=== PATIENT | female | born 1990 | race Caucasian/White ===

== ENCOUNTER → 2017-06-17 | Outpatient (CLI) | payer OTHER | LOC: LAB SHORT 13:50 | DX: L02.92 Furuncle, unspecified (principal) | CPT/HCPCS: 87070; 87077; 87147; 87186; 87205 ==

== ENCOUNTER → 2018-01-10 | Outpatient (CLI) | payer OTHER | END | disposition home or self-care (01) | LOC: LAB EV 09:24 → LAB SHORT 09:24 | DX: L05.01 Pilonidal cyst with abscess (principal) | CPT/HCPCS: 87070; 87075; 87205 ==

== ENCOUNTER → 2018-01-17 | Outpatient (CLI) | payer OTHER | END | disposition home or self-care (01) | LOC: LAB 17:43 → LAB SHORT 17:43 | DX: A49.02 Methicillin resistant Staphylococcus aureus infection, unspecified site (principal); Z86.14 Personal history of Methicillin resistant Staphylococcus aureus infection | CPT/HCPCS: 87081 ==

== ENCOUNTER → 2018-02-18 | Outpatient (CLI) | payer OTHER | END | disposition home or self-care (01) | LOC: LAB 09:44 → LAB SHORT 09:44 | DX: Z22.322 Carrier or suspected carrier of Methicillin resistant Staphylococcus aureus (principal) | CPT/HCPCS: 87070; 87081 ==

== ENCOUNTER → 2018-06-10 | Outpatient (CLI) | payer OTHER | LOC: LAB SHORT 18:23 → LAB EV 18:23 | DX: L72.8 Other follicular cysts of the skin and subcutaneous tissue (principal) | CPT/HCPCS: 87070; 87075; 87205 ==

== ENCOUNTER 2018-08-13 17:35 | Inpatient (IN) | payer OTHER ==
[~2018-08-13] VITALS: Ht 170.2 cm; Wt 106.0 kg
[2018-08-13] MEDS ORDERED: BUSP5 PO (18:33)
[2018-08-13 18:34] LABS: BASOPHILS ABSOLUTE AUTO 0.01 K/mm3 (0.00-0.23); BASOPHILS PERCENT AUTO 0 % (0-2); EOSINOPHILS ABSOLUTE AUTO 0.04 K/mm3 (0.00-0.68); EOSINOPHILS PERCENT AUTO 0 % (0-6); Hematocrit 33.6 % (33.0-51.0); Hemoglobin 11.2 g/dL (11.5-16.0); IMMATURE GRAN ABSOLUTE AUTO 0.04 K/mm3 (0.00-0.10); IMMATURE GRAN PERCENT AUTO 0 % (0-1); LYMPHOCYTES ABSOLUTE AUTO 1.93 K/mm3 (0.84-5.20); LYMPHOCYTES PERCENT AUTO 18 % (21-46); MONOCYTES ABSOLUTE AUTO 0.66 K/mm3 (0.16-1.47); MONOCYTES PERCENT AUTO 6 % (4-13); Mean Corpuscular HGB 30.7 pg (26.0-34.0); Mean Corpuscular HGB Conc 33.3 g/dL (31.5-36.5); Mean Corpuscular Volume 92 fL (80-100); Mean Platelet Volume 10.1 fL (9.1-12.4); NEUTROPHILS ABSOLUTE AUTO 8.03 K/mm3 (1.96-9.15); NEUTROPHILS PERCENT AUTO 75 % (41-73); Platelet Count 254 K/mm3 (150-400); RDW Coefficient Variation 12.6 % (11.7-14.2); RDW Standard Deviation 42.3 fL (35.1-46.3); Red Blood Cell Count 3.65 M/mm3 (3.80-5.20); White Blood Cell Count 10.71 K/mm3 (4.00-11.30)
[2018-08-13] MEDS ORDERED: Prilosec Otc20 MG PO (18:36)
[2018-08-13] MEDS ORDERED: Verotin-Gr Cap1 EACH PO (18:36)
[2018-08-13] MEDS ORDERED: CEPH500 (18:37)
[2018-08-13] MEDS ORDERED: LORA1SY PO (18:38)
--- NOTE | 2018-08-14 07:05 | NUR ---
ASSUMED PT CARE. PT RESTING FEELS SLEEPY, ENCOURGED TO REST UNTIL [facility] CNM ARRIVES THIS AM. PT WANTS MINIMAL INTERVENTIONS, BUT UNDERSTANDS NEED IF NECESSARY. CHART REVIEWED, REPORT FROM NOC THAT PT HAS A BACK LESION NEAR TOP OF UPPER COCCYX. HAS BEEN THERE SINCE 03-14-18, WAS ON KEFLEX, THEN DRAINED AGAIN 04/22/18 AT THE URGENT CARE AND WAS GIVEN AUGMENTIN. ON 06/19/18 CYST DRAINED AGAIN AND GIVEN AMOXICILLIN. PT REPORTS IT WAS DRAINED LAST WEEK AND SHE WAS PUT ON KEFLEX. IT HAS NOT BEEN CULTURED AND THE PT WAS CREARED FROM INFECTION CONTROL YESTERDAY FROM PREVIOUS BREASION LESION AND NARES. INSERTER PROMOTIONAL ITEMESHA GARCIA UPDATED, WILL DISCUSS WITH PROVIDER ON ARRIVAL TODAY.
--- NOTE | 2018-08-14 10:51 | NUR ---
Talked with CNM this am about coccyx culture. CNM reports [place] was dealing with it. Pt reports she will see a surgeon after is over to get the sac removed, as it wasn't removed 4 years ago when initally lanced. It is not red, but tender. CNM had given rx 8 days ago as it had puss, red with weaping dicsharge. Per pt it has been cultured, but there are no reports noted in [facility] system. There is one in Jun 2018 from a thigh culture. RN encourged pt to call surgeon soon after delivery.
--- NOTE | 2018-08-14 19:07 | NUR ---
REPORT TO MAURO BALBUENA/ESHA CLARK.
[2018-08-15 05:51] LABS: BASOPHILS ABSOLUTE AUTO 0.02 K/mm3 (0.00-0.23); BASOPHILS PERCENT AUTO 0 % (0-2); EOSINOPHILS ABSOLUTE AUTO 0.03 K/mm3 (0.00-0.68); EOSINOPHILS PERCENT AUTO 0 % (0-6); Hematocrit 29.9 % (33.0-51.0); Hemoglobin 9.7 g/dL (11.5-16.0); IMMATURE GRAN ABSOLUTE AUTO 0.06 K/mm3 (0.00-0.10); IMMATURE GRAN PERCENT AUTO 1 % (0-1); LYMPHOCYTES ABSOLUTE AUTO 1.78 K/mm3 (0.84-5.20); LYMPHOCYTES PERCENT AUTO 14 % (21-46); MONOCYTES ABSOLUTE AUTO 0.84 K/mm3 (0.16-1.47); MONOCYTES PERCENT AUTO 7 % (4-13); Mean Corpuscular HGB 30.6 pg (26.0-34.0); Mean Corpuscular HGB Conc 32.4 g/dL (31.5-36.5); Mean Corpuscular Volume 94 fL (80-100); Mean Platelet Volume 10.1 fL (9.1-12.4); NEUTROPHILS ABSOLUTE AUTO 9.78 K/mm3 (1.96-9.15); NEUTROPHILS PERCENT AUTO 78 % (41-73); Platelet Count 213 K/mm3 (150-400); RDW Coefficient Variation 12.5 % (11.7-14.2); RDW Standard Deviation 43.3 fL (35.1-46.3); Red Blood Cell Count 3.17 M/mm3 (3.80-5.20); White Blood Cell Count 12.51 K/mm3 (4.00-11.30)
--- NOTE | 2018-08-15 13:09 | NUR ---
ICE DIAPER TO PERINEUM AND BOTTOM. PT INSTRUCTED TO LAY FLAT WITH A PILLOW BETWEEN HER LEGS TO ALLEVIATE PRESSURE.
[2018-08-15] MEDS ORDERED: IBUP800 PO (18:15)
[2018-08-15] MEDS ORDERED: Percocet 5-3251 EACH PO (18:16)
--- NOTE | 2018-08-15 20:52 | NUR ---
DISCUSSED DISCHARGE INSTRUCTIONS WITH PT AND S.O., BOTH VERBALIZED UNDERSTANDING AND DENIED ANY FURTHER QUESTIONS OR CONCERNS. PT OBTAINED PRESCRIPTION PAIN MEDICATIONS PRIOR TO THIS SHIFT AND HAS THEM AVAILABLE IN THE ROOM.
== END 2018-08-15 20:45 | disposition home or self-care (01) | DRG 807 ==
LOC: OBS 17:35 → BC 17:36 → OBS 17:53 → BC 17:59
PROVIDERS: ADMIT Nurse Practitioner Obstetrics & Gynecology
PROC: 10E0XZZ Delivery of Products of Conception, External Approach (ICD-10-PCS; principal; 2018-08-14)
PROC: 0HQ9XZZ Repair Perineum Skin, External Approach (ICD-10-PCS; 2018-08-14)
PROC: 10H07YZ Insertion of Other Device into Products of Conception, Via Natural or Artificial Opening (ICD-10-PCS; 2018-08-14)
PROC: 3E0R3BZ Introduction of Anesthetic Agent into Spinal Canal, Percutaneous Approach (ICD-10-PCS; 2018-08-14)
DX: O42.02 Full-term premature rupture of membranes, onset of labor within 24 hours of rupture (principal); Z37.0 Single live birth; O63.1 Prolonged second stage (of labor); O70.0 First degree perineal laceration during delivery; Z3A.38 38 weeks gestation of pregnancy; Z91.040 Latex allergy status; F41.9 Anxiety disorder, unspecified; O99.344 Other mental disorders complicating childbirth
CPT/HCPCS: 36415; 51702; 85025; 86900; 86901; J0290; J0690; J1200; J1885; J2210; J2590; J3010; J7120

== ENCOUNTER 2018-10-25 05:56 | Day surgery (SDC) | payer OTHER, SELFPAY ==
[~2018-10-25] VITALS: Ht 170.2 cm; Wt 98.1 kg
[~2018-10-25 05:56] MED LIST: BUSP5 PO; CEPH500; IBUP800 PO; LEXAPRO PO; LORA1SY PO; LORATADINE10 MG PO; Percocet 5-3251 EACH PO; Prilosec Otc20 MG PO; SERT25 PO; Verotin-Gr Cap1 EACH PO; Zantac150 MG PO
--- NOTE | 2018-10-25 06:24 | NUR ---
History, Chart, Medications and Allergies reviewed before start of procedure. Patient confirms NPO status and agrees with scheduled surgery. Patient States Post-Procedure ride home has been arranged with her .
--- NOTE | 2018-10-25 10:00 | NUR ---
recieved patient recieved report vss. dressing cdi
--- NOTE | 2018-10-25 10:56 | NUR ---
DISCHARGED WITH ALL BELONGINGS AND DISCHARGE INSTRUCTIONS WITH DRAIN CARE INSTRUCTIONS. Discharge instructions reviewed with patient. Patient verbalizes understanding. Copy given to patient to take home. Patient States Post-Procedure ride home has been arranged. Discharged via wheelchair to private car for ride home.
== END 2018-10-25 22:56 | disposition home or self-care (01) ==
LOC: ORSCMMR 05:56 → ORD 07:30 → ORSCMMR 22:56
PROVIDERS: Surgery
PROC: 0HX8XZZ Transfer Buttock Skin, External Approach (ICD-10-PCS; principal; 2018-10-25 07:30)
PROC: 0JB90ZZ Excision of Buttock Subcutaneous Tissue and Fascia, Open Approach (ICD-10-PCS; principal; 2018-10-25 07:30)
DX: L05.01 Pilonidal cyst with abscess (principal); Z79.899 Other long term (current) drug therapy
CPT/HCPCS: 88305; A9270-GY; J0295; J1100; J1885; J2250; J2405; J2704; J2710; J3010; J7120

== ENCOUNTER → 2018-12-18 | Outpatient (CLI) | payer OTHER ==
[~2018-12-18] MED LIST changes: +ACET500 PO
== END ==
LOC: LAB 16:52 → LAB SHORT 16:52
DX: L81.4 Other melanin hyperpigmentation (principal); L73.2 Hidradenitis suppurativa; L08.9 Local infection of the skin and subcutaneous tissue, unspecified; L05.91 Pilonidal cyst without abscess; L72.8 Other follicular cysts of the skin and subcutaneous tissue
CPT/HCPCS: 87070; 87205; 87529; 87798

== ENCOUNTER 2020-02-08 06:02 | Inpatient (IN) | payer BC, OTHER ==
[~2020-02-08] VITALS: Ht 167.6 cm; Wt 97.5 kg
[2020-02-08] MEDS ORDERED: AMIT25 PO (06:34)
[2020-02-08] MEDS ORDERED: OMEP20ER PO (06:38)
[2020-02-08] MEDS ORDERED: LARIN 21 1-201 EACH PO (06:38)
[2020-02-08] MEDS ORDERED: MAGNESIUM100 MG PO (06:39)
[2020-02-08 06:41] LABS: BASOPHILS ABSOLUTE AUTO 0.02 K/mm3 (0.00-0.23); BASOPHILS PERCENT AUTO 0 % (0-2); EOSINOPHILS ABSOLUTE AUTO 0.02 K/mm3 (0.00-0.68); EOSINOPHILS PERCENT AUTO 0 % (0-6); Hematocrit 39.7 % (33.0-51.0); Hemoglobin 13.5 g/dL (11.5-16.0); IMMATURE GRAN ABSOLUTE AUTO 0.02 K/mm3 (0.00-0.10); IMMATURE GRAN PERCENT AUTO 0 % (0-1); LYMPHOCYTES ABSOLUTE AUTO 1.38 K/mm3 (0.84-5.20); LYMPHOCYTES PERCENT AUTO 14 % (21-46); MONOCYTES ABSOLUTE AUTO 0.29 K/mm3 (0.16-1.47); MONOCYTES PERCENT AUTO 3 % (4-13); Mean Corpuscular HGB 30.9 pg (26.0-34.0); Mean Corpuscular Volume 91 fL (80-100); Mean Platelet Volume 9.8 fL (9.1-12.4); NEUTROPHILS ABSOLUTE AUTO 8.13 K/mm3 (1.96-9.15); NEUTROPHILS PERCENT AUTO 83 % (41-73); Platelet Count 354 K/mm3 (150-400); RDW Coefficient Variation 11.8 % (11.7-14.2); RDW Standard Deviation 39.3 fL (35.1-46.3); Red Blood Cell Count 4.37 M/mm3 (3.80-5.20); White Blood Cell Count 9.86 K/mm3 (4.00-11.30)
[2020-02-08 06:46] LABS: Alanine Aminotransfer (ALT/SGP 22 U/L (12-78); Albumin, Blood 3.2 g/dL (3.4-5.0); Albumin/Globulin Ratio 0.8 (0.8-1.8); Alk Phos 69 U/L (50-136); Anion Gap 9 mmol/L (6-16); Aspartate Aminotrans (AST/SGOT 15 U/L (12-37); Bilirubin, Total 0.5 mg/dL (0.1-1.0); Blood Urea Nitrogen 11 mg/dL (8-24); Bun/Creatinine Ratio 14.1 (12.0-20.0); CO2, Blood 24 mmol/L (21-32); Calcium, Blood 8.3 mg/dL (8.5-10.1); Chloride, Blood 105 mmol/L (98-108); Creatinine, Blood 0.78 mg/dL (0.40-1.00); Globulin, Blood 4.2 g/dL (2.2-4.0); Glomerular Filtration Rate >60 (60-); Glucose, Blood 101 mg/dL (70-99); Potassium, Blood 3.6 mmol/L (3.5-5.5); Sodium, Blood 138 mmol/L (136-145); Total Protein, Blood 7.4 g/dL (6.4-8.2); Troponin I <0.015 ng/mL (0.000-0.040)
[2020-02-08 07:29] LABS: Source, Urine Clean Catch
[2020-02-08 07:32] LABS: Bilirubin, Urine Neg (Neg); Blood, Urine Neg (Neg); Glucose Qualitative, Urine Neg (Neg); Ketones, Urine 3+ (Neg); Leukocyte Esterase, Urine 1+ (Neg); Nitrite, Urine Neg (Neg); Protein, Urine 1+ (Neg); Urobilinogen, Urine NORM (Normal)
[2020-02-08 07:47] LABS: Appearance, Urine Hazy (Clear); Color, Urine Yellow (P-Yellow)
[2020-02-08 07:51] LABS: Amorphous Mod (0-Heavy); Bacteria Mod /hpf; Red Blood Cells, Urine 0-2 /hpf (0-2); Squamous Epithelial Cells Mod /hpf (Few); White Blood Cells, Urine 0-2 /hpf (0-5)
--- NOTE | 2020-02-08 15:27 | NUR ---
Patient to OR
--- NOTE | 2020-02-08 16:08 | NUR ---
Shift summary Patient has been independent in the room. VSS. Pain controlled with 1mg IV Dilaudid every 2 hours. IV Zofran given twice for nausea. Patient had 100cc emesis out this shift. Pt voiding clear yellow urine. Spouse at bedside offering support. Call light within patient reach.
--- NOTE | 2020-02-09 05:41 | NUR ---
PT VSS T/O NIGHT. BT HYPO, PT CONT TO C/O RUQ ABD PAIN THAT RADIATES TOWARDS BACK. PAIN MGD PER EMAR W/REP RELIEF. PT REP MILD NAUSEA, DECLINED NEED FOR NAUSEA MEDS. PT NPO POST MIDNIGHT FOR PLAN FOR SURGERY TODAY. IVF CONT PER ORDERS. PT INDEP IN ROOM, USING CALL LIGHT FOR ASSISTANCE.
--- NOTE | 2020-02-09 08:23 | NUR ---
PATIENT TO DAY SURGERY AT THIS TIME.
--- NOTE | 2020-02-09 12:57 | NUR ---
PATIENT UP TO BR W/ SBA, VOIDED AND BACK TO BED. TOLERATING CL. IV AND PAIN MED ADMINISTERED; PATIENT STATES ADEQUATE PAIN CONTROL. STERI STRIPS C/D/I. VSS. CONT TO MONITOR.
[2020-02-09] MEDS ORDERED: Norco 5-325 Ta1 EACH PO (18:06)
--- NOTE | 2020-02-09 18:45 | NUR ---
PATIENT D/C'D HOME WITH SPOUSE AT THIS TIME; BOTH STATE UNDERSTANDING OF MEDS, WOUND CARE, ACTIVITY, F/U APPT, ETC. PATIENT VOIDING WELL, TOLERATING PO, PAIN CONTROLLED WITH PO MEDS. NO ACUTE CHANGES OR C/O. IV RFA D/C'D INTACT, SITE CLEAR.
== END 2020-02-09 19:00 | disposition home or self-care (01) | DRG 419 ==
LOC: ER 06:02 → SURS 06:03
PROVIDERS: Emergency Medicine; ADMIT Surgery
PROC: 0FT44ZZ Resection of Gallbladder, Percutaneous Endoscopic Approach (ICD-10-PCS; principal; 2020-02-09 08:00)
DX: K80.00 Calculus of gallbladder with acute cholecystitis without obstruction (principal); K21.9 Gastro-esophageal reflux disease without esophagitis; E66.9 Obesity, unspecified; Z3A.35 35 weeks gestation of pregnancy; Z88.5 Allergy status to narcotic agent; Z91.040 Latex allergy status
CPT/HCPCS: 36415; 76705; 80053; 81001; 81025; 83690; 84484; 85025; 87086; 93005; 93010; 96361; 96365; 96375; 96376; 99285-25; A9270-GY; J0694; J0696; J1100; J1170; J1885; J2250; J2405; J2704; J2710; J3010; J7030; J7120; U0002

== ENCOUNTER → 2020-03-12 | Outpatient (CLI) | payer BC, OTHER ==
[~2020-03-12] MED LIST changes: +AMIT25 PO; +LARIN 21 1-201 EACH PO; +MAGNESIUM100 MG PO; +Norco 5-325 Ta1 EACH PO; +OMEP20ER PO
[2020-03-12 14:52] LABS: Adenovirus F 40/41 Not Detected (NOT DETECT); Astrovirus Not Detected (NOT DETECT); Campylobacter Sp Not Detected (NOT DETECT); Cryptosporidium Not Detected (NOT DETECT); Cyclospora Cayetanensis Not Detected (NOT DETECT); E. Coli O157 Not Detected (NOT DETECT); Entamoeba Histolytica Not Detected (NOT DETECT); Enteroaggregative E. coli-EAEC Not Detected (NOT DETECT); Enteropathogenic E. coli-EPEC Not Detected (NOT DETECT); Enterotoxigenic E. coli-ETEC Not Detected (NOT DETECT); Giardia Lamblia Not Detected (NOT DETECT); Norovirus GI/GII Not Detected (NOT DETECT); Plesiomonas Shigelloides Not Detected (NOT DETECT); Rotavirus A Not Detected (NOT DETECT); Salmonella Sp Not Detected (NOT DETECT); Sapovirus Not Detected (NOT DETECT); Shiga Toxin-prod E. coli-STEC Not Detected (NOT DETECT); Shigella/Enteroin E. coli-EIEC Not Detected (NOT DETECT); Vibrio Cholerae Not Detected (NOT DETECT); Vibrio Sp Not Detected (NOT DETECT); Yersinia Enterocolitica Not Detected (NOT DETECT)
== END ==
LOC: LAB 11:00 → LAB SHORT 11:00
PROVIDERS: Surgery
DX: R19.7 Diarrhea, unspecified (principal)
CPT/HCPCS: 0097U

== ENCOUNTER 2021-01-24 11:49 | Day surgery (SDC) | payer BC, OTHER ==
[~2021-01-24] VITALS: Ht 170.2 cm; Wt 90.7 kg
[2021-01-24 12:39] LABS: BASOPHILS ABSOLUTE AUTO 0.02 K/mm3 (0.00-0.23); BASOPHILS PERCENT AUTO 0 % (0-2); EOSINOPHILS PERCENT AUTO 1 % (0-6); Hematocrit 39.6 % (33.0-51.0); IMMATURE GRAN ABSOLUTE AUTO 0.02 K/mm3 (0.00-0.10); IMMATURE GRAN PERCENT AUTO 0 % (0-1); LYMPHOCYTES PERCENT AUTO 39 % (21-46); MONOCYTES ABSOLUTE AUTO 0.45 K/mm3 (0.16-1.47); MONOCYTES PERCENT AUTO 7 % (4-13); Mean Corpuscular HGB 31.1 pg (26.0-34.0); Mean Corpuscular HGB Conc 32.8 g/dL (31.5-36.5); Mean Corpuscular Volume 95 fL (80-100); Mean Platelet Volume 9.5 fL (9.1-12.4); NEUTROPHILS ABSOLUTE AUTO 3.67 K/mm3 (1.96-9.15); NEUTROPHILS PERCENT AUTO 53 % (41-73); Platelet Count 343 K/mm3 (150-400); RDW Coefficient Variation 11.7 % (11.7-14.2); RDW Standard Deviation 40.5 fL (35.1-46.3); Red Blood Cell Count 4.18 M/mm3 (3.80-5.20); White Blood Cell Count 6.96 K/mm3 (4.00-11.30)
[2021-01-24 13:26] LABS: Anion Gap 7 mmol/L (6-16); Blood Urea Nitrogen 7 mg/dL (8-24); CO2, Blood 27 mmol/L (21-32); Calcium, Blood 8.1 mg/dL (8.5-10.1); Chloride, Blood 105 mmol/L (98-108); Glomerular Filtration Rate >60 (60-); Glucose, Blood 93 mg/dL (70-99); Potassium, Blood 3.5 mmol/L (3.5-5.5); Sodium, Blood 139 mmol/L (136-145)
[2021-01-24 13:36] LABS: Beta HCG, Quantitative, Serum 1498 mIU/mL (0-3)
[2021-01-24 14:07] LABS: SARS-Cov-2 (COVID-19) PCR, MMC NEGATIVE (NEGATIVE)
--- NOTE | 2021-01-24 17:20 | NUR ---
01/24/21 1720 Hayley Mayer PATIENT NOTED TO HAVE BLEEDING FROM VAGINA. NO ANTIBIOTICS ORDERED.
--- NOTE | 2021-01-24 19:12 | NUR ---
DISCHARGE PT A&O X4. PT ARRIVED IN PLEASENT MOOD. PT VOIDING WELL, TOLLERATING ORAL INTAKE, SCANT BLOOD ON BASSAM PAD AND DENIES PAIN. PT IS HAS NORMAL GAIT WITH AMBULATION TO RESTROOM. PT IS WAITING FOR FOR TRANSPORTATION, WILL ESCORT PT TO [facility] VIA WC UPON SPOUSES ARIVAL.
--- NOTE | 2021-01-24 19:26 | NUR ---
ESCORT PT ESCORTED OUT VIA WC TO [facility]. PT AWAITING WITH TRANSPORTATION.
== END 2021-01-24 19:21 | disposition home or self-care (01) ==
LOC: ER 11:49 → MEDS 17:02 → ER 17:02 → ORSCMMR 17:05 → MEDS 17:51 → SURS 17:51 → ORSCMMR 19:21
PROVIDERS: Obstetrics & Gynecology; Physician Assistant
PROC: 10D17ZZ Extraction of Products of Conception, Retained, Via Natural or Artificial Opening (ICD-10-PCS; principal; 2021-01-24 16:00)
DX: O02.1 Missed abortion (principal); K21.9 Gastro-esophageal reflux disease without esophagitis; Z79.899 Other long term (current) drug therapy; Z20.822 Contact with and (suspected) exposure to COVID-19
CPT/HCPCS: 36415; 76801; 76817; 80048; 84702; 85025; 86900; 86901; 88305; 99285-25; A9270; J1100; J1885; J2210; J2250; J2405; J2704; J2765; J3010; U0004

== ENCOUNTER → 2022-01-17 | Outpatient (CLI) | payer OTHER ==
[2022-01-17 11:37] LABS: BASOPHILS ABSOLUTE AUTO 0.01 K/mm3 (0.00-0.23); BASOPHILS PERCENT AUTO 0 % (0-2); EOSINOPHILS ABSOLUTE AUTO 0.05 K/mm3 (0.00-0.68); EOSINOPHILS PERCENT AUTO 0 % (0-6); Hematocrit 42.8 % (33.0-51.0); Hemoglobin 15.2 g/dL (11.5-16.0); IMMATURE GRAN ABSOLUTE AUTO 0.06 K/mm3 (0.00-0.10); IMMATURE GRAN PERCENT AUTO 0 % (0-1); LYMPHOCYTES ABSOLUTE AUTO 0.44 K/mm3 (0.84-5.20); LYMPHOCYTES PERCENT AUTO 3 % (21-46); MONOCYTES ABSOLUTE AUTO 0.38 K/mm3 (0.16-1.47); MONOCYTES PERCENT AUTO 3 % (4-13); Mean Corpuscular HGB 31.8 pg (26.0-34.0); Mean Corpuscular HGB Conc 35.5 g/dL (31.5-36.5); Mean Corpuscular Volume 90 fL (80-100); Mean Platelet Volume 9.7 fL (9.1-12.4); NEUTROPHILS ABSOLUTE AUTO 12.75 K/mm3 (1.96-9.15); NEUTROPHILS PERCENT AUTO 93 % (41-73); Platelet Count 297 K/mm3 (150-400); RDW Coefficient Variation 12.3 % (11.7-14.2); RDW Standard Deviation 40.2 fL (35.1-46.3); Red Blood Cell Count 4.78 M/mm3 (3.80-5.20); White Blood Cell Count 13.69 K/mm3 (4.00-11.30)
[2022-01-17 12:20] LABS: Albumin/Globulin Ratio 1.1 (0.8-1.8); Bun/Creatinine Ratio 20.1 (12.0-20.0); Calcium, Blood 9.2 mg/dL (8.5-10.1); Creatinine, Blood 0.8 mg/dL (0.40-1.00); Globulin, Blood 3.7 g/dL (2.2-4.0); Potassium, Blood 3.8 mmol/L (3.5-5.5); Total Protein, Blood 7.7 g/dL (6.4-8.2)
== END | disposition home or self-care (01) ==
LOC: LAB SHORT 11:32 → LAB 11:32
PROVIDERS: Chiropractor
DX: E86.0 Dehydration (principal)
CPT/HCPCS: 80053; 85025

== ENCOUNTER 2022-04-02 06:25 | Emergency (ER) | payer OTHER ==
[~2022-04-02] VITALS: Ht 167.6 cm; Wt 93.4 kg
[2022-04-02 07:13] LABS: BASOPHILS ABSOLUTE AUTO 0.02 K/mm3 (0.00-0.23); BASOPHILS PERCENT AUTO 0 % (0-2); EOSINOPHILS PERCENT AUTO 2 % (0-6); Hematocrit 35.9 % (33.0-51.0); Hemoglobin 12.5 g/dL (11.5-16.0); IMMATURE GRAN ABSOLUTE AUTO 0.02 K/mm3 (0.00-0.10); IMMATURE GRAN PERCENT AUTO 0 % (0-1); LYMPHOCYTES ABSOLUTE AUTO 2.14 K/mm3 (0.84-5.20); LYMPHOCYTES PERCENT AUTO 32 % (21-46); MONOCYTES ABSOLUTE AUTO 0.38 K/mm3 (0.16-1.47); MONOCYTES PERCENT AUTO 6 % (4-13); Mean Corpuscular HGB 31.9 pg (26.0-34.0); Mean Corpuscular HGB Conc 34.8 g/dL (31.5-36.5); Mean Corpuscular Volume 92 fL (80-100); Mean Platelet Volume 9.9 fL (9.1-12.4); NEUTROPHILS ABSOLUTE AUTO 4.12 K/mm3 (1.96-9.15); NEUTROPHILS PERCENT AUTO 61 % (41-73); Platelet Count 280 K/mm3 (150-400); RDW Standard Deviation 40.2 fL (35.1-46.3); Red Blood Cell Count 3.92 M/mm3 (3.80-5.20); White Blood Cell Count 6.78 K/mm3 (4.00-11.30)
[2022-04-02 08:15] LABS: Source, Urine Straight Cath
[2022-04-02 08:25] LABS: Bilirubin, Urine Neg (Neg); Blood, Urine 1+ (Neg); Glucose Qualitative, Urine Neg (Neg); Ketones, Urine Neg (Neg); Leukocyte Esterase, Urine Neg (Neg); Nitrite, Urine Neg (Neg); Protein, Urine Neg (Neg); Specific Gravity, Urine 1.005 (1.003-1.022); Urobilinogen, Urine NORM (Normal)
[2022-04-02 08:31] LABS: Appearance, Urine Clear (Clear); Color, Urine Pale Yellow (P-Yellow)
[2022-04-02 08:34] LABS: Bacteria Rare /hpf; Red Blood Cells, Urine 0-2 /hpf (0-2); Squamous Epithelial Cells Few /hpf (Few); White Blood Cells, Urine 0-2 /hpf (0-5)
== END 2022-04-02 09:34 | disposition home or self-care (01) ==
LOC: ER 06:25
PROVIDERS: Emergency Medicine
DX: O20.0 Threatened abortion (principal); Z3A.01 Less than 8 weeks gestation of pregnancy
CPT/HCPCS: 36415; 76801; 76817; 81001; 84702; 85025; 86900; 86901; P9612

== ENCOUNTER → 2022-04-11 | Outpatient (CLI) | payer OTHER | LOC: LAB 12:00 → LAB SHORT 12:00 | DX: Z86.14 Personal history of Methicillin resistant Staphylococcus aureus infection (principal) | CPT/HCPCS: 87081 ==

== ENCOUNTER → 2022-09-20 | Outpatient (CLI) | payer OTHER | END | disposition home or self-care (01) | LOC: LAB SHORT 10:45 | DX: Z09 Encounter for follow-up examination after completed treatment for conditions other than malignant neoplasm (principal); Z86.14 Personal history of Methicillin resistant Staphylococcus aureus infection | CPT/HCPCS: 87081 ==

== ENCOUNTER → 2022-11-12 | Outpatient (CLI) | payer OTHER | LOC: LAB 15:42 → LAB SHORT 15:42 | DX: L72.3 Sebaceous cyst (principal) | CPT/HCPCS: 87070; 87075; 87077; 87186; 87205 ==

== ENCOUNTER 2022-11-18 07:36 | Inpatient (IN) | payer OTHER ==
[2022-11-18] VITALS (29 sets, daily range): BP systolic 100–145; BP diastolic 54–83
[~2022-11-18] VITALS: Ht 170.2 cm; Wt 114.0 kg
[2022-11-18 09:05] LABS: BASOPHILS ABSOLUTE AUTO 0.02 K/mm3 (0.00-0.23); BASOPHILS PERCENT AUTO 0 % (0-2); EOSINOPHILS ABSOLUTE AUTO 0.05 K/mm3 (0.00-0.68); EOSINOPHILS PERCENT AUTO 0 % (0-6); Hematocrit 35.5 % (33.0-51.0); Hemoglobin 12.3 g/dL (11.5-16.0); IMMATURE GRAN ABSOLUTE AUTO 0.07 K/mm3 (0.00-0.10); IMMATURE GRAN PERCENT AUTO 1 % (0-1); LYMPHOCYTES ABSOLUTE AUTO 1.57 K/mm3 (0.84-5.20); LYMPHOCYTES PERCENT AUTO 14 % (21-46); MONOCYTES ABSOLUTE AUTO 0.62 K/mm3 (0.16-1.47); MONOCYTES PERCENT AUTO 6 % (4-13); Mean Corpuscular HGB 32.4 pg (26.0-34.0); Mean Corpuscular HGB Conc 34.6 g/dL (31.5-36.5); Mean Corpuscular Volume 93 fL (80-100); Mean Platelet Volume 10.3 fL (9.1-12.4); NEUTROPHILS ABSOLUTE AUTO 8.93 K/mm3 (1.96-9.15); NEUTROPHILS PERCENT AUTO 79 % (41-73); Platelet Count 211 K/mm3 (150-400); RDW Coefficient Variation 12.6 % (11.7-14.2); RDW Standard Deviation 42.9 fL (35.1-46.3); White Blood Cell Count 11.26 K/mm3 (4.00-11.30)
[2022-11-18] MEDS ORDERED: BUSP10 PO (09:14)
[2022-11-18] MEDS ORDERED: PANT40 PO (09:15)
[2022-11-18] MEDS ORDERED: PRENATAL TABLE1 EAC9 PO (09:16)
[2022-11-18] MEDS ORDERED: B COMPLEX FORM0.4 MG PO (09:16)
[2022-11-19 00:56] VITALS: BP 133/69
[2022-11-19 03:33] VITALS: BP 134/65
[2022-11-19 06:14] LABS: Hemoglobin 11.9 g/dL (11.5-16.0); Mean Corpuscular HGB 32.4 pg (26.0-34.0); Mean Corpuscular Volume 95 fL (80-100); Mean Platelet Volume 10.2 fL (9.1-12.4); Platelet Count 205 K/mm3 (150-400); RDW Coefficient Variation 12.5 % (11.7-14.2); Red Blood Cell Count 3.67 M/mm3 (3.80-5.20); White Blood Cell Count 12.56 K/mm3 (4.00-11.30)
[2022-11-19 07:30] VITALS: BP 136/58
[2022-11-19 12:24] VITALS: BP 113/70
== END 2022-11-19 18:41 | disposition home or self-care (01) | DRG 807 ==
LOC: OBS 07:36 → BC 08:07
PROVIDERS: ADMIT Nurse Practitioner Obstetrics & Gynecology
PROC: 10E0XZZ Delivery of Products of Conception, External Approach (ICD-10-PCS; principal; 2022-11-18)
PROC: 10H07YZ Insertion of Other Device into Products of Conception, Via Natural or Artificial Opening (ICD-10-PCS; 2022-11-18)
PROC: 3E0R3BZ Introduction of Anesthetic Agent into Spinal Canal, Percutaneous Approach (ICD-10-PCS; 2022-11-18)
PROC: 00HU33Z Insertion of Infusion Device into Spinal Canal, Percutaneous Approach (ICD-10-PCS; 2022-11-18)
DX: O48.0 Post-term pregnancy (principal); Z37.0 Single live birth; O91.12 Abscess of breast associated with the puerperium; L73.2 Hidradenitis suppurativa; O99.72 Diseases of the skin and subcutaneous tissue complicating childbirth; Z90.49 Acquired absence of other specified parts of digestive tract; Z90.89 Acquired absence of other organs; Z98.890 Other specified postprocedural states; Z3A.40 40 weeks gestation of pregnancy; Z67.10 Type A blood, Rh positive; Z88.6 Allergy status to analgesic agent; Z91.040 Latex allergy status
CPT/HCPCS: 36415; 51702; 59025; 81003; 85025; 85027; 86850; 86900; 86901; A9270; C9113; J1885; J2210; J2405; J2590; J3010; J3370; J7050; J7120

== ENCOUNTER → 2022-12-04 | Outpatient (CLI) | payer OTHER ==
[~2022-12-04] MED LIST changes: +B COMPLEX FORM0.4 MG PO; +BUSP10 PO; +PANT40 PO; +PRENATAL TABLE1 EAC9 PO
[2022-12-04 19:26] LABS: BASOPHILS ABSOLUTE AUTO 0.04 K/mm3 (0.00-0.23); BASOPHILS PERCENT AUTO 1 % (0-2); EOSINOPHILS ABSOLUTE AUTO 0.15 K/mm3 (0.00-0.68); EOSINOPHILS PERCENT AUTO 2 % (0-6); Hematocrit 42.6 % (33.0-51.0); Hemoglobin 14.4 g/dL (11.5-16.0); IMMATURE GRAN ABSOLUTE AUTO 0.01 K/mm3 (0.00-0.10); IMMATURE GRAN PERCENT AUTO 0 % (0-1); LYMPHOCYTES ABSOLUTE AUTO 2.82 K/mm3 (0.84-5.20); LYMPHOCYTES PERCENT AUTO 36 % (21-46); MONOCYTES ABSOLUTE AUTO 0.38 K/mm3 (0.16-1.47); MONOCYTES PERCENT AUTO 5 % (4-13); Mean Corpuscular HGB 31.4 pg (26.0-34.0); Mean Corpuscular HGB Conc 33.8 g/dL (31.5-36.5); Mean Corpuscular Volume 93 fL (80-100); Mean Platelet Volume 10.1 fL (9.1-12.4); NEUTROPHILS ABSOLUTE AUTO 4.43 K/mm3 (1.96-9.15); NEUTROPHILS PERCENT AUTO 57 % (41-73); Platelet Count 354 K/mm3 (150-400); RDW Coefficient Variation 11.6 % (11.7-14.2); RDW Standard Deviation 39.8 fL (35.1-46.3); Red Blood Cell Count 4.58 M/mm3 (3.80-5.20); White Blood Cell Count 7.83 K/mm3 (4.00-11.30)
[2022-12-04 20:27] LABS: Albumin, Blood 3.1 g/dL (3.4-5.0); Albumin/Globulin Ratio 0.8 (0.8-1.8); Bilirubin, Total 0.6 mg/dL (0.1-1.0); Bun/Creatinine Ratio 14.8 (12.0-20.0); Calcium, Blood 9.2 mg/dL (8.5-10.1); Creatinine, Blood 0.88 mg/dL (0.40-1.00); Potassium, Blood 4.4 mmol/L (3.5-5.5); Total Protein, Blood 7.1 g/dL (6.4-8.2)
[2022-12-04 20:39] LABS: Creatinine, Urine Random 68.7 mg/dL (27.00-270.00); Protein/Creat Ratio, Ur Random 0.2
== END | disposition home or self-care (01) ==
LOC: LAB SHORT 17:21 → LAB 17:21
PROVIDERS: Family Medicine
DX: O14.90 Unspecified pre-eclampsia, unspecified trimester (principal)
CPT/HCPCS: 80053; 82570; 84156; 85025

== ENCOUNTER → 2023-01-27 | Outpatient (CLI) | payer OTHER ==
[2023-01-27 13:38] LABS: BASOPHILS ABSOLUTE AUTO 0.02 K/mm3 (0.00-0.23); BASOPHILS PERCENT AUTO 0 % (0-2); EOSINOPHILS ABSOLUTE AUTO 0.05 K/mm3 (0.00-0.68); EOSINOPHILS PERCENT AUTO 1 % (0-6); Hematocrit 36.7 % (33.0-51.0); Hemoglobin 12.8 g/dL (11.5-16.0); IMMATURE GRAN ABSOLUTE AUTO 0.02 K/mm3 (0.00-0.10); IMMATURE GRAN PERCENT AUTO 0 % (0-1); LYMPHOCYTES ABSOLUTE AUTO 1.88 K/mm3 (0.84-5.20); LYMPHOCYTES PERCENT AUTO 25 % (21-46); MONOCYTES ABSOLUTE AUTO 0.55 K/mm3 (0.16-1.47); MONOCYTES PERCENT AUTO 7 % (4-13); Mean Corpuscular HGB 31.5 pg (26.0-34.0); Mean Corpuscular HGB Conc 34.9 g/dL (31.5-36.5); Mean Corpuscular Volume 90 fL (80-100); Mean Platelet Volume 9.2 fL (9.1-12.4); NEUTROPHILS ABSOLUTE AUTO 4.92 K/mm3 (1.96-9.15); NEUTROPHILS PERCENT AUTO 66 % (41-73); Platelet Count 297 K/mm3 (150-400); RDW Standard Deviation 39.8 fL (35.1-46.3); Red Blood Cell Count 4.06 M/mm3 (3.80-5.20); White Blood Cell Count 7.44 K/mm3 (4.00-11.30)
[2023-01-27 13:44] LABS: Creatinine, Blood 0.9 mg/dL (0.40-1.00); Potassium, Blood 3.5 mmol/L (3.5-5.5)
== END ==
LOC: LAB 13:34 → LAB SHORT 13:34
PROVIDERS: Chiropractor
DX: E86.0 Dehydration (principal)
CPT/HCPCS: 80048; 85025

== ENCOUNTER 2023-04-19 06:44 | Day surgery (SDC) | payer OTHER ==
[~2023-04-19] VITALS: Ht 170.2 cm; Wt 106.7 kg
[2023-04-19] MEDS ORDERED: NYAMYC1513 (07:20)
[2023-04-19] MEDS ORDERED: Depo-Prove150 MG/11 (07:21)
[2023-04-19] MEDS ORDERED: LORA10ER (07:21)
[2023-04-19] MEDS ORDERED: PROBIOTIC1 EA13 (07:22)
[2023-04-19] MEDS ORDERED: ASCORBIC ACID500 MG (07:23)
[2023-04-19] MEDS ORDERED: MAGCIT300 (07:23)
[2023-04-19] MEDS ORDERED: VITAMIN D325 MC3 (07:24)
[2023-04-19] MEDS ORDERED: MUSHROOM SUPPLEMENT (07:24)
--- NOTE | 2023-04-19 08:07 | NUR ---
04/19/23 0807 Soumya Alfredo IV FAMOTADINE PULLED IN PACU PYXIS PER DR CLAY SNET BACK TO OR W/ LOGISTICS LOSS PREVENTION MANAGERESHA ALLEN TO GIVE.
--- NOTE | 2023-04-19 08:17 | NUR ---
04/19/23 0817 Bhavin Hogan MULTIPLE SMALL POCK TYPE BATRES ON BOTTOM, SOME RED SOME ARE SCARS.
[2023-04-19 09:16] VITALS: BP 134/64
== END 2023-04-19 10:01 | disposition home or self-care (01) ==
LOC: ORSCSDS 06:44
PROVIDERS: Obstetrics & Gynecology
PROC: 0UBC7ZX Excision of Cervix, Via Natural or Artificial Opening, Diagnostic (ICD-10-PCS; principal; 2023-04-19 08:00)
DX: D06.0 Carcinoma in situ of endocervix (principal); R87.810 Cervical high risk human papillomavirus (HPV) DNA test positive; E66.9 Obesity, unspecified; Z68.36 Body mass index [BMI] 36.0-36.9, adult; Z87.891 Personal history of nicotine dependence; G47.33 Obstructive sleep apnea (adult) (pediatric); K21.9 Gastro-esophageal reflux disease without esophagitis; J45.909 Unspecified asthma, uncomplicated; Z79.899 Other long term (current) drug therapy
CPT/HCPCS: 88305; J0171; J0690; J1100; J1790; J1885; J2405; J2704; J2795; J3010; J7120

== ENCOUNTER → 2023-05-27 | Outpatient (CLI) | payer OTHER ==
[~2023-05-27] MED LIST changes: +ASCORBIC ACID500 MG; +Depo-Prove150 MG/11; +LORA10ER; +MAGCIT300; +MUSHROOM SUPPLEMENT; +NYAMYC1513; +PROBIOTIC1 EA13; +VITAMIN D325 MC3
== END | disposition home or self-care (01) ==
LOC: LAB SHORT 09:52 → LAB 09:52
DX: N39.0 Urinary tract infection, site not specified (principal)
CPT/HCPCS: 87077; 87086; 87186

== ENCOUNTER → 2023-06-05 | Outpatient (CLI) | payer OTHER | LOC: LAB SHORT 19:18 → LAB 19:18 | DX: R39.15 Urgency of urination (principal) | CPT/HCPCS: 87086 ==

== ENCOUNTER → 2023-06-21 | Outpatient (CLI) | payer OTHER ==
[2023-06-21 16:06] LABS: Source, Urine Clean Catch
[2023-06-21 16:47] LABS: Bacteria Mod /hpf; Hyaline Casts 0-2 /lpf (0-2); Red Blood Cells, Urine Not Seen /hpf (0-2); Squamous Epithelial Cells Mod /hpf (Few); White Blood Cells, Urine 50-100 /hpf (0-5)
== END ==
LOC: LAB SHORT 16:03 → LAB 16:03
PROVIDERS: Physician Assistant
DX: R30.0 Dysuria (principal)
CPT/HCPCS: 81015; 87077; 87086; 87186

== ENCOUNTER → 2023-06-28 | Outpatient (CLI) | payer OTHER | LOC: LAB SHORT 10:30 → LAB 10:30 | DX: R39.15 Urgency of urination (principal) | CPT/HCPCS: 87077; 87086; 87186 ==

== ENCOUNTER → 2024-01-21 | Outpatient (CLI) | payer OTHER | END | disposition home or self-care (01) | LOC: LAB 18:06 → LAB SHORT 18:06 | DX: N39.0 Urinary tract infection, site not specified (principal) | CPT/HCPCS: 87077; 87086; 87186 ==

== ENCOUNTER 2024-03-24 08:11 | Day surgery (SDC) | payer OTHER ==
[~2024-03-24] VITALS: Ht 167.6 cm; Wt 35.3 kg
[~2024-03-24 08:11] MED LIST changes: +Lactated Ringer's 1,000 ML IV ONE
[2024-03-24] MEDS ORDERED: DULO60 (08:55)
[2024-03-24] MEDS ORDERED: Lactated Ringer's 1,000 ML IV ONE (09:11)
[2024-03-24] MEDS ORDERED: propofoL 20 ML IV ONE ×2 (09:11→09:18)
--- NOTE | 2024-03-24 09:12 | NUR ---
03/24/24 0912 Soumya Alfredo INJECTED 9ML LOCAL IN THE LEFT HAND AT 0857. PT TOLERATED WELL.
[2024-03-24 09:33] VITALS: BP 151/82
== END 2024-03-24 09:50 | disposition home or self-care (01) ==
LOC: ORSCSDS 08:11
PROVIDERS: Orthopaedic Surgery
PROC: 01N54ZZ Release Median Nerve, Percutaneous Endoscopic Approach (ICD-10-PCS; principal; 2024-03-24 09:45)
DX: G56.03 Carpal tunnel syndrome, bilateral upper limbs (principal); M65.4 Radial styloid tenosynovitis [de Quervain]; K21.9 Gastro-esophageal reflux disease without esophagitis; J45.909 Unspecified asthma, uncomplicated; F32.A Depression, unspecified; F41.9 Anxiety disorder, unspecified; E78.5 Hyperlipidemia, unspecified; Z87.891 Personal history of nicotine dependence; Z79.899 Other long term (current) drug therapy
CPT/HCPCS: J2704; J7120

== ENCOUNTER 2024-05-19 07:51 | Day surgery (SDC) | payer OTHER ==
[~2024-05-19] VITALS: Ht 167.6 cm; Wt 100.6 kg
[~2024-05-19 07:51] MED LIST changes: +DULO60; -Lactated Ringer's 1,000 ML IV ONE; +NS 500 ML IV ONE
[2024-05-19] MEDS ORDERED: NS 500 ML IV ONE (08:05)
[2024-05-19] MEDS ORDERED: OMEP20ER PO (08:12)
[2024-05-19] MEDS ORDERED: RIZATRIPTAN10 MG SL (08:13)
[2024-05-19] MEDS ORDERED: METHENAMINE MAND1 GM PO (08:16)
[2024-05-19] MEDS ORDERED: Midazolam HCl 1MG / ML 2ML Vial ONE (08:31)
[2024-05-19 09:00] VITALS: BP 129/90
== END 2024-05-19 09:12 | disposition home or self-care (01) ==
LOC: ORSCSDS 07:51
PROVIDERS: Orthopaedic Surgery
PROC: 01N54ZZ Release Median Nerve, Percutaneous Endoscopic Approach (ICD-10-PCS; principal; 2024-05-19 09:15)
DX: G56.01 Carpal tunnel syndrome, right upper limb (principal); F41.9 Anxiety disorder, unspecified; F32.A Depression, unspecified; K21.9 Gastro-esophageal reflux disease without esophagitis; E78.5 Hyperlipidemia, unspecified; Z87.891 Personal history of nicotine dependence; Z79.899 Other long term (current) drug therapy
CPT/HCPCS: J2250; J7040